=== PATIENT | female | born 1965 | race Caucasian/White ===

== ENCOUNTER 2016-08-08 23:45 | Emergency (ER) | payer BC ==
[~2016-08-08 23:45] MED LIST: ATV.5 PO; BIOTIN10 MG OR; CLARIT10 PO; FLAG500TAB PO; HYOMAX-FT0.125 MG PO; SYN1 PO; SYN125 PO; SYN88 PO; ULTRAM50 PO; V2 PO; X5 PO
[2016-08-09 00:11] LABS: BASOPHILS 0.2 %; BASOPHILS ABSOLUTE 0.05 10/3/uL (0.0-0.16); EOSINOPHILS 0.3 %; EOSINOPHILS ABSOLUTE 0.08 10/3/uL (0.0-0.53); HEMOGLOBIN 14.3 g/dL (12.0-16.0); IMMATURE GRANULOCYTES 0.7 %; IMMATURE GRANULOCYTES ABSOLUTE 0.17 10/3/uL (0.0-0.11); LYMPHOCYTES ABSOLUTE 3.49 10/3/uL (0.67-4.30); MEAN CORPUS HGB CONC 34.9 g/dL (32.0-36.0); MEAN CORPUSCULAR HEMOGLOB 31.4 pg (26.0-34.0); MEAN CORPUSCULAR VOLUME 89.9 fL (80-100); MEAN PLATELET VOLUME 9.8 fL (9.2-13.0); MONOCYTES 7.3 %; MONOCYTES ABSOLUTE 1.82 10/3/uL (0.21-1.20); NEUTROPHILS 77.5 %; NEUTROPHILS ABSOLUTE 19.28 10/3/uL (2.02-8.40); PLATELET COUNT 357 10/3/uL (150-400); RBC DISTRIBUTION WIDTH 12.7 % (12.0-16.0); RED CELL COUNT 4.56 10/6/uL (4.0-5.6); WHITE BLOOD CELLS 24.9 10/3/uL (4.5-10.5)
[2016-08-09 00:13] LABS: ER CBC TAT 0 Hrs 08 Mins; MANUAL DIFF NO %
[2016-08-09 00:30] LABS: ALBUMIN 3.8 G/DL (3.5-5.0); ALKALINE PHOSPHATASE 106 U/L (45-117); BUN (BLOOD UREA NITROGEN) 13 MG/DL (6-23); CALCIUM, SERUM 8.9 MG/DL (8.5-10.4); CHLORIDE, SERUM 105 MMOL/L (96-112); CO2 (CARBON DIOXIDE) 25 MMOL/L (24-34); CREATININE 0.57 MG/DL (0.55-1.02); GFR AFRICAN AMERICAN 124 ML/MIN (>=60); GFR NON AFRICAN AMERICAN 107 ML/MIN (>=60); GLUCOSE, SERUM 149 MG/DL (60-99); POTASSIUM, SERUM 3.1 MMOL/L (3.5-5.3); SGOT(AST) 12 U/L (5-40); SGPT(ALT) 17 U/L (5-65); SODIUM, SERUM 142 MMOL/L (135-148); TOTAL BILIRUBIN 0.3 MG/DL (0-1.2); TOTAL PROTEIN 7.8 G/DL (6.0-8.5)
== END 2016-08-09 01:33 | disposition short-term general hospital (02) ==
LOC: ER 23:45
PROVIDERS: Specialist
DX: I60.9 Nontraumatic subarachnoid hemorrhage, unspecified (principal); F17.200 Nicotine dependence, unspecified, uncomplicated; Z88.0 Allergy status to penicillin; Z88.2 Allergy status to sulfonamides; Z88.1 Allergy status to other antibiotic agents; Z88.8 Allergy status to other drugs, medicaments and biological substances
CPT/HCPCS: 70450; 80053; 81001; 83690; 84703; 85025; 96374; 96375; 99285; J2405; J2550